=== PATIENT | male | born 1975 | race Caucasian/White ===

== ENCOUNTER 2017-04-23 09:48 | Emergency (ER) | payer MEDICAID ==
[~2017-04-23] VITALS: Ht 165.1 cm; Wt 90.0 kg
[~2017-04-23 09:48] MED LIST: DENIES; NO MEDS
[2017-04-23 09:52] VITALS: Ht 165.1 cm; Wt 90.0 kg
[2017-04-23] MEDS ORDERED: BEN25 PO (10:21)
[2017-04-23] MEDS ORDERED: KENC1 TOP (10:21)
--- NOTE | 2017-04-23 10:26 | ERD ---
ER Documentation Chief Complaint Date/Time DATE: 04/23/17 TIME: 10:22 Chief Complaint right hand burnning and itching since friday HPI 42-year-old male comes emergency department with right dorsal hand burning and itching that started Friday the day after he went to cut [place] tree. Patient states that he was cutting trees, without any gloves or protection, and started having symptoms the next day. He describes as burning and itching is localized to the hands. He denies any new allergens otherwise. ROS All systems reviewed and are negative except as per history of present illness. Medications Home Meds Active Scripts Diphenhydramine Hcl* (Benadryl*) 25 Mg Cap, 25 MG PO Q6, #30 CAP Prov:RUFINO BEGUM PA-C 04/23/17 Triamcinolone Acetonide (Triamcinolone Acetonide) 0.1% - 15 Gm Cream.gm., 1 APPLIC TOP BID, #1 TUB Prov:RUFINO BEGMU PA-C 04/23/17 Reported Medications [No Meds] No Conflict Check 02/23/11 [Denies] No Conflict Check 02/20/11 Allergies Allergies: Coded Allergies: No Known Drug Allergies (Verified Allergy, Mild, 02/23/11) PMhx/Soc Medical and Surgical Hx: pt denies Medical Hx, pt denies Surgical Hx History of Surgery: No Anesthesia Reaction: No Hx Neurological Disorder: No Hx Respiratory Disorders: No Hx Cardiac Disorders: No Hx Psychiatric Problems: No Hx Miscellaneous Medical Probl: No Hx Alcohol Use: No Hx Substance Use: No Hx Tobacco Use: No Smoking Status: Never smoker Physical Exam Vitals Vital Signs Date Time Temp Pulse Resp B/P Pulse Ox O2 Delivery O2 Flow Rate FiO2 04/23/17 09:52 98.1 70 18 132/75 99 Physical Exam General: Well-developed, well-nourished. The patient appears in no acute distress. HEENT: Head is normocephalic, atraumatic. No scleral icterus. Neck: Supple. Nontender. Lungs: Clear to auscultation. Normal air movement. Heart: Regular rate and rhythm. S1 and S2 are normal. No murmurs, gallops, or rubs. Abdomen: Nondistended. Extremities: No clubbing or cyanosis. Moving extremities x 4. No weakness. Neurologic: Alert and oriented 3. No focal deficits. Normal speech and gait. Skin: bilateral dorsum of hands is erythematous, thickened. No vesicles, no drainage. Procedures/MDM 42 yo male comes into the ER with contact dermatitis to bilateral hands. No evidence of infectious process. Patient's allergic symptoms have stabilized while they have been evaluated in the department without evidence of persistent systemic reaction. We will discharge her triamcinolone cream to apply to both hands, and Benadryl for itching. Departure Diagnosis: Primary Impression: Contact dermatitis Condition: Good Patient Instructions: Contact Dermatitis Additional Instructions: Llame al doctor MAANA y josefa venkatesh ABDIAZIZ PARA DENTRO DE 1-2 ALMENDAREZ.Dgale a la secretaria que nosotros le instruimos hacer esta abdiaziz.Avise o llame si hurtado condicin se empeora antes de la abdiaziz. Regresa aqui si peor o no mejor. RUFINO BEGUM PA-C Apr 23, 2017 10:26
== END 2017-04-23 10:25 | disposition home or self-care (01) ==
LOC: FTE 09:48
DX: L25.9 Unspecified contact dermatitis, unspecified cause (principal)
CPT/HCPCS: 99283

== ENCOUNTER 2019-01-25 08:22 | Emergency (ER) | payer MEDICAID ==
[~2019-01-25] VITALS: Wt 81.0 kg
[~2019-01-25 08:22] MED LIST changes: +BEN25 PO; +NAPR-985 PO; +TRIA15CR55 TOP
[2019-01-25 08:24] VITALS: BP 145/65; PULSE 81; RESP 18
[2019-01-25] MEDS ORDERED: HC30CR25 TOP (08:42)
[2019-01-25] MEDS ORDERED: CLOT30CR24 TOP (08:42)
--- NOTE | 2019-01-27 07:31 | ERD ---
ER Documentation Chief Complaint Chief Complaint bilateral earlobe swelling for the past 4 days,. redness but no fever HPI 43-year-old male presenting with bilateral earlobe swelling for the last 4 days. He states they are warm but has no fever. He is not applied medication to the area. Denies any purulent discharge. Denies any medical problems. NKDA. Surgical history denies. Social history denies ROS All systems reviewed and are negative except as per history of present illness. Medications Home Meds Active Scripts Hydrocortisone* Topical (Hydrocortisone* Topical) 2.5%-28.3 Gm Cream..g., 1 APPLIC TOP BID, #1 TUB Prov:ANA NAVA PA-C 01/25/19 Clotrimazole* (Clotrimazole* AF) 1% - 30 Gm Cream.gm., 1 APPLIC TOP BID for 7 Days, #1 TUB Prov:ANA NAVA PA-C 01/25/19 Naproxen* (Naprosyn*) 500 Mg Tablet, 500 MG PO BID PRN for PAIN AND/OR INFLAMMATION, #30 TAB Prov:KURT DOHERTY PA-C 03/07/18 Diphenhydramine Hcl* (Benadryl*) 25 Mg Cap, 25 MG PO Q6, #30 CAP Prov:RUFINO BEGUM PA-C 04/23/17 Triamcinolone Acetonide (Triamcinolone Acetonide) 0.1% - 15 Gm Cream.gm., 1 APPLIC TOP BID, #1 TUB Prov:RUFINO BEGUM PA-C 04/23/17 Reported Medications [No Meds] No Conflict Check 02/23/11 [Denies] No Conflict Check 02/20/11 Allergies Allergies: Coded Allergies: No Known Drug Allergies (Verified Allergy, Mild, 02/23/11) PMhx/Soc History of Surgery: No Anesthesia Reaction: No Hx Neurological Disorder: No Hx Respiratory Disorders: No Hx Cardiac Disorders: No Hx Psychiatric Problems: No Hx Miscellaneous Medical Probl: No Hx Alcohol Use: No Hx Substance Use: No Hx Tobacco Use: No Smoking Status: Never smoker FmHx Family History: No diabetes, No coronary disease, No other Physical Exam Vitals Vital Signs Date Temp Pulse Resp B/P (MAP) Pulse Ox O2 O2 Flow FiO2 Time Delivery Rate 4/8/19 98.8 81 18 145/65 99 08:24 (91) Physical Exam GENERAL: The patient is well-appearing, well-nourished, in no acute distress HEENT: Atraumatic. Conjunctivae are pink. Pupils equal, round, and reactive to light. There is no scleral icterus. Tympanic membranes clear bilaterally. Oropharynx clear. NECK: C-spine is soft and supple. There is no meningismus. There is no cervical lymphadenopathy. CHEST: Clear to auscultation bilaterally. There are no rales, wheezes or rhonchi. HEART: Regular rate and rhythm. No murmurs, clicks, rubs or gallops. No S3 or S4. SKIN: Erythema noted to the earlobes with mild excoriation. No vesicles or pustules. Circular erythematous lesion with central clearing noted behind the earlobe. Procedures/MDM MDM: 43-year-old male presenting with findings consistent of eczema on the earlobes and tinea behind the ear. I have low suspicion for life-threatening rash. I have low suspicion for ureteral or viral infection. Patient will be discharged with 2 medications and directed to take them accordingly. Patient is told if symptoms change or worsen to return immediately to the ER. All questions answered at discharge Departure Diagnosis: Primary Impression: Eczema Additional Impression: Tinea Condition: Stable Patient Instructions: Tinea Corporis, Atopic Dermatitis (Eczema) Referrals: [facility] YOU HAVE RECEIVED A MEDICAL SCREENING EXAM AND THE RESULTS INDICATE THAT YOU DO NOT HAVE A CONDITION THAT REQUIRES URGENT TREATMENT IN THE EMERGENCY DEPARTMENT. FURTHER EVALUATION AND TREATMENT OF YOUR CONDITION CAN WAIT UNTIL YOU ARE SEEN IN YOUR DOCTORS OFFICE WITHIN THE NEXT 1-2 DAYS. IT IS YOUR RESPONSIBILITY TO MAKE AN APPOINTMENT FOR FOLOW-UP CARE. IF YOU HAVE A PRIMARY DOCTOR --you should call your primary doctor and schedule an appointment IF YOU DO NOT HAVE A PRIMARY DOCTOR YOU CAN CALL OUR PHYSICIAN REFERRAL HOTLINE AT IF YOU CAN NOT AFFORD TO SEE A PHYSICIAN YOU CAN CHOSE FROM THE FOLLOWING [facility] [address] [place] [facility] [address] [facility] [address] [facility] [address] [facility]. [facility] [address] [facility]. [facility] [address] Additional Instructions: FOLLOW UP WITH YOUR PRIMARY CARE PHYSICIAN TOMORROW.Return to this facility if you are not improving as expected. ANA NAVA PA-C Jan 27, 2019 07:31
== END 2019-01-25 09:20 | disposition home or self-care (01) ==
LOC: FTE 08:22
DX: L30.9 Dermatitis, unspecified (principal); B35.9 Dermatophytosis, unspecified
CPT/HCPCS: 99282